=== PATIENT | male | born 1955 | race Caucasian/White ===

== ENCOUNTER → 2022-08-29 | Outpatient (CLI) | payer OTHER ==
[~2022-08-29] MED LIST: ASPIR 8181 MG PO; CYCLOBENZAPRINE10 MG PO; FLOMAX0.4 MG PO; HYZAAR 100-12.1 EACH PO; LANSOPRAZOLE30 MG PO; LIDOCAINE HCL 1% 30ML-PF VIAL ONE; NORCO 5-325 TA1 EACH PO; PLAVIX75 MG PO; PREVACID15 M1 PO; PROPRANOLOL HCL80 M1 PO; SIMVASTATIN40 MG PO; SODIUM CHLORIDE 0.9% 250ML 250 ML ONE; VITAMIN B122500 MCG PO
== END ==
LOC: OR 07:42
PROVIDERS: ATTEND Family Medicine
DX: S22.081A Stable burst fracture of T11-T12 vertebra, initial encounter for closed fracture (principal)
CPT/HCPCS: 22513; J0690; J2001; J7050